=== PATIENT | female | born 2000 | race African-American/Black ===

== ENCOUNTER 2020-02-16 23:36 | Emergency (ER) | payer BC, OTHER ==
[~2020-02-16] VITALS: Ht 162.6 cm; Wt 113.4 kg
[2020-02-16 23:38] VITALS: BP 139/98
--- NOTE | 2020-02-17 14:21 | EKG ---
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
== END 2020-02-17 00:10 | disposition home or self-care (01) ==
LOC: ER 23:36
DX: R50.9 Fever, unspecified (principal); F17.210 Nicotine dependence, cigarettes, uncomplicated; Z20.828 Contact with and (suspected) exposure to other viral communicable diseases

== ENCOUNTER 2020-05-18 05:31 | Emergency (ER) | payer BC, OTHER ==
[~2020-05-18] VITALS: Ht 165.1 cm; Wt 113.4 kg
[2020-05-18 05:59] LABS: ABSOLUTE NEUTROPHILS 8.8 thou/uL (1.4-8.2); BASOPHILS 0.5 % (0.0-2.0); HEMATOCRIT 40.8 % (37.0-47.0); HEMOGLOBIN 13.4 gm/dL (12.0-15.0); LYMPHOCYTES 24.9 % (24.0-44.0); MCH 28.8 pg (26.0-34.0); MCHC 32.9 g/dL (28.0-37.0); MCV 87.6 fL (80.0-100.0); MONOCYTES 5.6 % (1.0-8.0); PLATELET COUNT 270 thou/uL (150-400); RBC 4.66 mil/uL (4.20-5.00); RDW 13.6 % (10.5-14.5)
[2020-05-18 06:04] LABS: CALCIUM 9.1 mg/dL (8.5-10.1); CREATININE 0.8 mg/dL (0.6-1.0); POTASSIUM 3.8 mmol/L (3.5-5.1)
[2020-05-18 06:09] LABS: ALBUMIN 3.5 g/dL (3.4-5.0); TOTAL BILIRUBIN 0.2 mg/dL (0.2-1.0); TOTAL PROTEIN 7.1 g/dL (6.4-8.2)
[2020-05-18 07:29] LABS: URINE BILIRUBIN NEGATIVE (Negative); URINE BLOOD 2+ (Negative); URINE CLARITY CLEAR; URINE COLOR YELLOW; URINE GLUCOSE-RANDOM* NEGATIVE (Negative); URINE KETONES NEGATIVE (Negative); URINE LEUKOCYTES-REFLEX TRACE (Negative); URINE NITRITE-REFLEX NEGATIVE (Negative); URINE PROTEIN (DIPSTICK) NEGATIVE (Negative); URINE SPECIFIC GRAVITY 1.015 (1.005-1.035); URINE UROBILINOGEN 0.2 E.U./dl (0.2-1.0)
[2020-05-18 08:01] LABS: SQUAMOUS >10 Many /LPF (0-3)
[2020-05-18 08:02] LABS: BACTERIA-REFLEX 1-9 Few /HPF (None Seen); CASTS None Seen /LPF (None Seen); CRYSTALS None Seen /LPF (None Seen); URINE RBC >20 Many /HPF (0-2); URINE WBC-REFLEX 0-5 Rare /HPF (0-5)
[2020-05-18 08:03] VITALS: BP 119/72
== END 2020-05-18 08:04 | disposition home or self-care (01) ==
LOC: ER 05:31
PROVIDERS: Emergency Medicine
DX: R10.32 Left lower quadrant pain (principal); R10.31 Right lower quadrant pain; R11.10 Vomiting, unspecified; F17.210 Nicotine dependence, cigarettes, uncomplicated

== ENCOUNTER 2020-08-29 19:39 | Emergency (ER) | payer OTHER ==
[~2020-08-29] VITALS: Ht 165.1 cm; Wt 111.1 kg
[2020-08-29 20:15] LABS: URINE BILIRUBIN NEGATIVE (Negative); URINE BLOOD TRACE (Negative); URINE CLARITY SL CLOUDY; URINE COLOR YELLOW; URINE GLUCOSE-RANDOM* NEGATIVE (Negative); URINE KETONES NEGATIVE (Negative); URINE NITRITE-REFLEX NEGATIVE (Negative); URINE PROTEIN (DIPSTICK) NEGATIVE (Negative); URINE SPECIFIC GRAVITY 1.025 (1.005-1.035); URINE UROBILINOGEN 0.2 E.U./dl (0.2-1.0)
[2020-08-29 20:16] LABS: URINE LEUKOCYTES-REFLEX 1+ (Negative)
[2020-08-29 20:23] LABS: SQUAMOUS >10 Many /LPF (0-3)
[2020-08-29 20:24] LABS: CASTS None Seen /LPF (None Seen); CRYSTALS None Seen /LPF (None Seen)
[2020-08-29 20:25] LABS: URINE RBC 0-2 Rare /HPF (0-2); URINE WBC-REFLEX 6-15 Few /HPF (0-5)
[2020-08-29 20:45] VITALS: BP 123/74
== END 2020-08-29 20:46 | disposition home or self-care (01) ==
LOC: ER 19:39
PROVIDERS: Physician Assistant
DX: N76.0 Acute vaginitis (principal); N76.2 Acute vulvitis; F17.210 Nicotine dependence, cigarettes, uncomplicated

== ENCOUNTER 2020-09-27 14:21 | Emergency (ER) | payer OTHER ==
[~2020-09-27] VITALS: Ht 165.1 cm; Wt 113.4 kg
[2020-09-27 14:28] VITALS: BP 121/69
[2020-09-27 16:02] LABS: URINE BILIRUBIN NEGATIVE (Negative); URINE BLOOD NEGATIVE (Negative); URINE CLARITY CLEAR; URINE COLOR YELLOW; URINE GLUCOSE-RANDOM* NEGATIVE (Negative); URINE KETONES NEGATIVE (Negative); URINE LEUKOCYTES-REFLEX 1+ (Negative); URINE NITRITE-REFLEX NEGATIVE (Negative); URINE PROTEIN (DIPSTICK) TRACE (Negative); URINE SPECIFIC GRAVITY 1.015 (1.005-1.035)
[2020-09-27 16:12] LABS: BACTERIA-REFLEX >30 Many /HPF (None Seen); CASTS None Seen /LPF (None Seen); CRYSTALS None Seen /LPF (None Seen); SQUAMOUS >10 Many /LPF (0-3); URINE RBC None Seen /HPF (0-2); URINE WBC-REFLEX 6-15 Few /HPF (0-5)
[2020-09-27] MEDS ORDERED: BACTRIM DS TAB1 EAC1 PO (16:15)
[2020-09-27] MEDS ORDERED: ZOFRAN ODT4 MG PO (16:15)
== END 2020-09-27 16:00 | disposition home or self-care (01) ==
LOC: ER 14:21
PROVIDERS: Nurse Practitioner Family
DX: N12 Tubulo-interstitial nephritis, not specified as acute or chronic (principal); F17.210 Nicotine dependence, cigarettes, uncomplicated; Z20.822 Contact with and (suspected) exposure to COVID-19

== ENCOUNTER 2021-06-12 07:19 | Emergency (ER) | payer OTHER ==
[~2021-06-12] VITALS: Ht 167.6 cm; Wt 108.9 kg
[~2021-06-12 07:19] MED LIST: BACTRIM DS TAB1 EAC1 PO; ZOFRAN ODT4 MG PO
[2021-06-12 07:45] LABS: ABSOLUTE NEUTROPHILS 7.8 thou/uL (1.4-8.2); EOSINOPHILS 1.2 % (0.0-3.0); HEMATOCRIT 40.1 % (37.0-47.0); HEMOGLOBIN 13.2 gm/dL (12.0-15.0); LYMPHOCYTES 31.3 % (24.0-44.0); MCHC 32.9 g/dL (28.0-37.0); MCV 88.1 fL (80.0-100.0); MONOCYTES 9.2 % (1.0-8.0); PLATELET COUNT 293 thou/uL (150-400); POLYS 57.3 % (36.0-66.0); RBC 4.55 mil/uL (4.20-5.00); RDW 14.5 % (10.5-14.5); WBC 13.7 thou/uL (4.0-11.0)
[2021-06-12 07:51] LABS: CALCIUM 8.8 mg/dL (8.5-10.1); CREATININE 0.9 mg/dL (0.6-1.0); POTASSIUM 4.2 mmol/L (3.5-5.1)
[2021-06-12 07:56] LABS: ALBUMIN 3.5 g/dL (3.4-5.0); TOTAL BILIRUBIN 0.3 mg/dL (0.2-1.0); TOTAL PROTEIN 7.2 g/dL (6.4-8.2)
[2021-06-12 09:09] LABS: URINE BILIRUBIN NEGATIVE (Negative); URINE BLOOD NEGATIVE (Negative); URINE CLARITY CLEAR; URINE COLOR YELLOW; URINE GLUCOSE-RANDOM* NEGATIVE (Negative); URINE KETONES NEGATIVE (Negative); URINE LEUKOCYTES-REFLEX NEGATIVE (Negative); URINE NITRITE-REFLEX NEGATIVE (Negative); URINE PROTEIN (DIPSTICK) NEGATIVE (Negative); URINE UROBILINOGEN 0.2 E.U./dl (0.2-1.0)
[2021-06-12] MEDS ORDERED: IBUPROFEN 800800 MG PO (09:56)
[2021-06-12] MEDS ORDERED: ZOFRAN ODT4 MG PO (09:56)
[2021-06-12 10:37] VITALS: BP 115/72
== END 2021-06-12 10:50 | disposition home or self-care (01) ==
LOC: ER 07:19
PROVIDERS: Emergency Medicine
DX: R10.32 Left lower quadrant pain (principal); N94.6 Dysmenorrhea, unspecified; N93.9 Abnormal uterine and vaginal bleeding, unspecified; F17.210 Nicotine dependence, cigarettes, uncomplicated; F12.90 Cannabis use, unspecified, uncomplicated; Z79.899 Other long term (current) drug therapy; Z79.891 Long term (current) use of opiate analgesic

== ENCOUNTER 2021-09-22 17:16 | Emergency (ER) | payer OTHER ==
[~2021-09-22] VITALS: Ht 165.1 cm; Wt 108.9 kg
[~2021-09-22 17:16] MED LIST changes: +IBUPROFEN 800800 MG PO
[2021-09-22 17:17] VITALS: BP 112/70
[2021-09-22] MEDS ORDERED: BACTRIM DS TAB1 EAC1 PO (17:36)
== END 2021-09-22 18:13 | disposition home or self-care (01) ==
LOC: ER 17:16
DX: N76.4 Abscess of vulva (principal); F17.210 Nicotine dependence, cigarettes, uncomplicated; Z79.899 Other long term (current) drug therapy